=== PATIENT | male | born 1975 | race African-American/Black ===

== ENCOUNTER 2020-09-22 08:25 | Emergency (ER) | payer SELFPAY ==
[~2020-09-22] VITALS: Ht 182.9 cm; Wt 113.4 kg
[2020-09-22 08:29] VITALS: BP 135/58
--- NOTE | 2020-09-22 08:30 | NUR ---
biba to bed 09
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
[2020-09-22] MEDS ORDERED: KETOROLAC 30 MG/ML VIAL IM ONE (08:45)
--- NOTE | 2020-09-22 09:10 | NUR ---
PT TAKEN TO XRAY AT THIS TIME BY KELVIN
--- NOTE | 2020-09-22 09:31 | NUR ---
IMAGING BROUGHT BACK PT IN 9. PT CURRENTLY SITTING COMFORTABLY IN BED.
[2020-09-22 09:59] VITALS: BP 138/82
--- NOTE | 2020-09-22 09:59 | NUR ---
Patient discharged with v/s stable. Written and verbal after care instructions given and explained. Patient alert, oriented and verbalized understanding of instructions. Ambulatory with steady gait. All questions addressed prior to discharge. ID band removed. Patient advised to follow up with PMD. Rx of NAPROSYN AND VALIUM given. Patient educated on indication of medication including possible reaction and side effects. Opportunity to ask questions provided and answered.
== END 2020-09-22 09:59 | disposition home or self-care (01) ==
LOC: MED 08:25
DX: S16.1XXA Strain of muscle, fascia and tendon at neck level, initial encounter (principal); S63.601A Unspecified sprain of right thumb, initial encounter; R07.89 Other chest pain; F12.90 Cannabis use, unspecified, uncomplicated; V89.2XXA Person injured in unspecified motor-vehicle accident, traffic, initial encounter; Y93.89 Activity, other specified; Y92.89 Other specified places as the place of occurrence of the external cause; Y99.8 Other external cause status
CPT/HCPCS: 71045; 72040; 73120; 96372; 99284; J1885

== ENCOUNTER 2023-09-14 08:33 | Emergency (ER) | payer OTHER ==
[~2023-09-14] VITALS: Ht 185.4 cm; Wt 108.9 kg
[2023-09-14 09:03] VITALS: BP 133/69; PULSE 70; RESP 16; TEMP 98.3; O2SAT 98
[2023-09-14] MEDS ORDERED: PSEU120T22 PO (09:40)
[2023-09-14] MEDS ORDERED: IBUP-2213 PO (09:40)
[2023-09-14] MEDS ORDERED: PRED20TA5 PO (09:40)
== END 2023-09-14 10:15 | disposition home or self-care (01) ==
LOC: MED 08:33
DX: J06.9 Acute upper respiratory infection, unspecified (principal)
CPT/HCPCS: 99283